=== PATIENT | male | born 1985 | race Caucasian/White ===

== ENCOUNTER 2017-08-15 13:29 | Emergency (ER) | payer OTHER ==
--- NOTE | 2017-08-15 13:34 | EDM.PDOC ---
ED HPI GENERAL MEDICAL PROBLEM - General Stated Complaint: AMB Time Seen by Provider: 08/15/17 13:30 - History of Present Illness INITIAL COMMENTS - FREE TEXT/NARRATIVE: HISTORY AND PHYSICAL: History of present illness: Patient is a 32-year-old white male presents with palpitations. Patient has a history of anxiety and panic attacks on arrival here patient is markedly improved and without complaints. Review of systems: As per history of present illness and below otherwise all systems reviewed and negative. Past medical history: As per history of present illness and as reviewed below otherwise noncontributory. Surgical history: As per history of present illness and as reviewed below otherwise noncontributory. Social history: No reported history of drug or alcohol abuse. Family history: As per history of present illness and as reviewed below otherwise noncontributory. Physical exam: HEENT: Atraumatic, normocephalic, pupils reactive, negative for conjunctival pallor or scleral icterus, mucous membranes moist, throat clear, neck supple, nontender, trachea midline. Lungs: Clear to auscultation, breath sounds equal bilaterally, chest nontender. Heart: S1S2, regular, negative for clicks, rubs, or JVD. Abdomen: Soft, nondistended, nontender. Negative for masses or hepatosplenomegaly. Negative for costovertebral tenderness. Pelvis: Stable nontender. Genitourinary: Deferred. Rectal: Deferred. Extremities: Atraumatic, negative for cords or calf pain. Neurovascular unremarkable. Neuro: Awake, alert, oriented. Cranial nerves II through XII unremarkable. Cerebellum unremarkable. Motor and sensory unremarkable throughout. Exam nonfocal. Diagnostics: EKG Therapeutics: None Impression: #1 acute anxiety Definitive disposition and diagnosis as appropriate pending reevaluation and review of above. ED ROS GENERAL - Review of Systems Review Of Systems: ROS reveals no pertinent complaints other than HPI. ED EXAM, GENERAL - Physical Exam Exam: See Below (See dictation) Departure - Departure Time of Disposition: 13:33 Disposition: Home, Self-Care 01 Condition: Good Clinical Impression: Anxiety - Discharge Information Additional Instructions: The following information is given to patients seen in the emergency department who are being discharged to home. This information is to outline your options for follow-up care. We provide all patients seen in our emergency department with a follow-up referral. The need for follow-up, as well as the timing and circumstances, are variable depending upon the specifics of your emergency department visit. If you don't have a primary care physician on staff, we will provide you with a referral. We always advise you to contact your personal physician following an emergency department visit to inform them of the circumstance of the visit and for follow-up with them and/or the need for any referrals to a consulting specialist. The emergency department will also refer you to a specialist when appropriate. This referral assures that you have the opportunity for followup care with a specialist. All of these measure are taken in an effort to provide you with optimal care, which includes your followup. Under all circumstances we always encourage you to contact your private physician who remains a resource for coordinating your care. When calling for followup care, please make the office aware that this follow-up is from your recent emergency room visit. If for any reason you are refused follow-up, please contact the [facility] emergency department at and asked to speak to the emergency department charge nurse. [facility] [address] [place] [phone] Follow-up clinic above call to schedule appointment return as needed as discussed
== END 2017-08-15 14:02 | disposition home or self-care (01) ==
LOC: MW.ED 13:29
DX: F41.9 Anxiety disorder, unspecified (principal)
CPT/HCPCS: 93005; 99282; 99283

== ENCOUNTER 2021-08-11 06:56 | Day surgery (SDC) | payer BC, OTHER ==
[2021-08-11] MEDS ORDERED: Ondansetron 4 MG/2 ML SDV IVPUSH ONE (07:45)
[2021-08-11] MEDS ORDERED: Sodium Chloride 0.9% 1,000 ML IV STA (07:45)
[2021-08-11 08:10] LABS: BLOOD UREA NITROGEN,BUN 11 mg/dL (7.0-18.0); CARBON DIOXIDE,CO2 25.2 mmol/L (21.0-32.0); CHLORIDE,CL 102 mmol/L (98-107); GLUCOSE RANDOM 123 mg/dL (74-106); LIPASE 94 U/L (73-393); POTASSIUM,K 3.7 mmol/L (3.5-5.1); SODIUM,NA 137 mmol/L (136-148)
[2021-08-11] MEDS ORDERED: Piperacillin/Tazobactam 4.5 GM in Sodium Chloride 0.9% 100 ML IV ONE (09:11)
[2021-08-11 10:18] LABS: CORONAVIRUS COVID-19 NAA NEGATIVE (NEGATIVE); INFLUENZA A NAA NEGATIVE (NEGATIVE); INFLUENZA B NAA NEGATIVE (NEGATIVE)
[2021-08-11] MEDS ORDERED: fentaNYL 100 MCG/2 ML SDV ONE (10:51)
[2021-08-11] MEDS ORDERED: Rocuronium 100 MG/10 ML MDV ONE (10:51)
[2021-08-11] MEDS ORDERED: Dexmedetomidine 200 MCG/2 ML SDV ONE (10:51)
[2021-08-11] MEDS ORDERED: Propofol 200 MG/20 ML SDV ONE (10:51)
[2021-08-11] MEDS ORDERED: Midazolam 1 MG/ML 2 ML SDV ONE (10:51)
[2021-08-11] MEDS ORDERED: Water For Injection, Sterile 20 ML ONE (10:52)
[2021-08-11] MEDS ORDERED: Bupivacaine 0.5% 30 ML SDV ONE (10:56)
[2021-08-11] MEDS ORDERED: Octyl 2-Cyanoacrylate 1 Tube ONE (10:57)
[2021-08-11] MEDS ORDERED: Dexamethasone 4 MG/ML 5 ML MDV ONE (11:39)
[2021-08-11] MEDS ORDERED: Ondansetron 4 MG/2 ML SDV ONE (11:57)
[2021-08-11] MEDS ORDERED: Ketorolac 30 MG/ML SDV ONE (11:57)
[2021-08-11] MEDS ORDERED: Sugammadex Sodium 200 MG/2 ML VIAL ONE (11:57)
[2021-08-11] MEDS ORDERED: HYDROmorphone 2 MG/ML Syringe ONE (12:17)
[2021-08-11] MEDS ORDERED: HYDROmorphone 1 MG/ML Syringe IVPUSH PRN (12:37)
[2021-08-11] MEDS ORDERED: Metoclopramide 10 MG/2 ML SDV IVPUSH PRN (12:37)
[2021-08-11] MEDS ORDERED: Albuterol 0.083% 2.5 MG/3 ML Neb Soln NEB PRN (12:37)
[2021-08-11] MEDS ORDERED: Naloxone 0.4 MG/ML SDV IVPUSH PRN (12:37)
[2021-08-11] MEDS ORDERED: Ondansetron 4 MG/2 ML SDV IVPUSH PRN ×2 (12:37→12:47)
[2021-08-11] MEDS ORDERED: Morphine 4 MG/ML VIAL IVPUSH PRN (12:37)
[2021-08-11] MEDS ORDERED: fentaNYL 100 MCG/2 ML SDV IVPUSH PRN (12:37)
[2021-08-11] MEDS ORDERED: Sodium Chloride 0.9% 10 ML Syringe FLUSH PRN (12:47)
[2021-08-11] MEDS ORDERED: Acetaminophen/oxyCODONE 325-5 MG Tab PO PRN (12:47)
[2021-08-11] MEDS ORDERED: diphenhydrAMINE 50 MG/ML SDV IVPUSH PRN (12:47)
[2021-08-11] MEDS ORDERED: HYDROmorphone 2 MG/ML Syringe IVPUSH PRN (12:47)
[2021-08-11] MEDS ORDERED: Sodium Chloride 0.9% 2.5 ML Syringe FLUSH PRN (12:47)
[2021-08-11] MEDS ORDERED: Sodium Chloride 0.9% 20 ML SDV IV PRN (12:47)
[2021-08-11] MEDS ORDERED: Iopamidol 755 MG/ML 500 ML Multipack Bottle IVPUSH ONE (17:08)
== END 2021-08-11 20:19 | disposition home or self-care (01) ==
LOC: MW.ED 06:56 → MW.SDS 10:40 → MW.MS 10:41 → MW.SDS 20:19
PROVIDERS: ATTEND Surgery
DX: K35.30 Acute appendicitis with localized peritonitis, without perforation or gangrene (principal); F41.9 Anxiety disorder, unspecified; Z01.812 Encounter for preprocedural laboratory examination; Z20.822 Contact with and (suspected) exposure to COVID-19
CPT/HCPCS: 0240U; 36415; 44970; 74177; 80053; 81001; 83690; 85025; A9270; J0131; J1100; J1885; J2250; J2370; J2405; J2543; J2704; J3490; J7030; Q9967; 99285; J1170; J3010

== ENCOUNTER 2022-05-24 12:47 | Emergency (ER) | payer BC ==
[2022-05-24] MEDS ORDERED: Sodium Chloride 0.9% 10 ML Syringe FLUSH PRN (12:53)
[2022-05-24] MEDS ORDERED: Sodium Chloride 0.9% 2.5 ML Syringe FLUSH PRN (12:53)
[2022-05-24] MEDS ORDERED: Aspirin 81 MG Tab.Chew PO ONE (12:59)
[2022-05-24] MEDS ORDERED: Sodium Chloride 0.9% 1,000 ML IV ONE (12:59)
[2022-05-24 13:48] LABS: BLOOD UREA NITROGEN,BUN 6 mg/dL (7.0-18.0); CARBON DIOXIDE,CO2 30.2 mmol/L (21.0-32.0); CHLORIDE,CL 102 mmol/L (98-107); GLUCOSE RANDOM 79 mg/dL (74-106); LIPASE 112 U/L (73-393); POTASSIUM,K 3.8 mmol/L (3.5-5.1); SODIUM,NA 140 mmol/L (136-148)
[2022-05-24 13:49] LABS: ESTIMATED GFR 73 mL/min (>60)
[2022-05-24 15:25] LABS: CORONAVIRUS COVID-19 NAA NEGATIVE (NEGATIVE); INFLUENZA A NAA NEGATIVE (NEGATIVE); INFLUENZA B NAA NEGATIVE (NEGATIVE); RESPIRATORY SYNCYTIAL VIR NAA NEGATIVE (NEGATIVE)
== END 2022-05-24 15:53 | disposition home or self-care (01) ==
LOC: MW.ED 12:47
DX: R07.9 Chest pain, unspecified (principal); M79.602 Pain in left arm; R10.12 Left upper quadrant pain; Z20.822 Contact with and (suspected) exposure to COVID-19
CPT/HCPCS: 0241U; 36415; 71045; 80053; 83690; 84484; 85025; 87651; 93005; 99285; A9270; J3490; J7030; 93010; 99283